=== PATIENT | female | born 1930 | race Caucasian/White ===

== ENCOUNTER 2018-09-07 11:32 | Outpatient (CLI) | payer MEDICARE, OTHER | END 2018-09-07 23:59 | disposition home or self-care (01) | LOC: CFH 11:32 | PROVIDERS: ATTEND Licensed Practical Nurse | DX: N85.9 Noninflammatory disorder of uterus, unspecified (principal); N95.8 Other specified menopausal and perimenopausal disorders | CPT/HCPCS: 77080 ==